=== PATIENT | male | born 1995 | race Caucasian/White ===

== ENCOUNTER → 2017-12-27 | Outpatient (REF) | payer OTHER ==
[2017-12-27 16:47] LABS: PLATELET COUNT, AUTOMATED 233 K/uL (150-450)
== END ==
PROVIDERS: ATTEND Physician Assistant Medical
DX: R07.9 Chest pain, unspecified (principal)
CPT/HCPCS: 82040; 82247; 82310; 82374; 82435; 82565; 82947; 84075; 84132; 84155; 84295; 84443; 84450; 84460; 84484; 84520; 85025; 85379

== ENCOUNTER 2018-11-21 23:31 | Emergency (ER) | payer OTHER ==
--- NOTE | 2018-11-21 23:34 | ER Report ---
History and Physical Time Seen By MD: 23:34 HPI/ROS CHIEF COMPLAINT: Chest pain, no palpitations HISTORY OF PRESENT ILLNESS: 23-year-old male presents ambulatory to the ER complaining of severe chest pain radiating to his left arm. Patient admits to smoking cannabis earlier. Patient was diagnosed with influenza. 2 days ago and prescribed Tamiflu and benzoate. Patient was smoking marijuana tonight when he began to feel really bad. He comes in to the emergency room with pain in his left arm and shaking as well as some dizziness. Patient denies cardiac risk factors. REVIEW OF SYSTEMS: Respiratory: No cough, no dyspnea. Cardiovascular: As above Gastrointestinal: No vomiting, no abdominal pain. Musculoskeletal: No back pain. Allergies: Coded Allergies: amoxicillin (Verified Allergy, Intermediate, SWELLING, HIVES, 11/21/18) Penicillins (Verified Allergy, Unknown, 11/21/18) Home Meds Active Scripts Promethazine Hcl (PROMETHAZINE HCL) 25 Mg Tablet, 25 MG PO Q4H PRN for NAUSEA/VOMITING, #10 TAB Prov:ELIZA ANGLIN DO 11/22/18 Hydrocodone Bit/Acetaminophen (HYDROCODON-ACETAMINOPHEN 5-325) 1 Each Tablet, 1 EACH PO Q4-6H PRN for pain or cough suppression, #10 TAKE ONE TABLET BY MOUTH EVERY 4-6 HOURS NEEDED FOR PAIN Prov:ELIZA ANGLIN DO 11/22/18 Past Medical/Surgical History Unremarkable Reviewed Nurses Notes: Yes Old Medical Records Reviewed: Yes Hx Smoking: No Exposure to Second Hand Smoke?: No Hx Substance Use Disorder: No Hx Alcohol Use: No Constitutional Vital Sign - Last 24 Hours 11/21/18 11/21/18 11/22/18 11/22/18 23:36 23:36 00:00 00:01 Temp 99.1 Pulse 106 95 Resp 15 14 B/P (MAP) 173/98 173/98 (123) 136/81 (99) Pulse Ox 95 93 O2 Delivery Room Air 11/22/18 11/22/18 00:10 00:16 Pulse 87 Resp 10 B/P (MAP) 146/92 (110) Pulse Ox 93 Physical Exam General Appearance: The patient is alert, has no immediate need for airway protection and no current signs of toxicity. Vital signs stable, low-grade fever, pulse ox normal HEENT: Pupils equal and round no injection. TMs normal, oropharynx without redness or exudate, mucous. Membranes are moist Respiratory: Chest is non tender, lungs are clear to auscultation. No chest wall tenderness Cardiac: regular rate and rhythm Gastrointestinal: Abdomen is soft and non tender, no masses, bowel sounds normal. Musculoskeletal: Neck: Neck is supple and non tender. No lymphadenopathy, no meningismus Extremities have full range of motion and are non tender. No edema, no calf tenderness Skin: No rashes or lesions. DIFFERENTIAL DIAGNOSIS: After history and physical exam differential diagnosis was considered for chest pain including but not limited to myocardial ischemia, pericarditis pulmonary embolus, chest wall pain, pleural inflammation and pulmonary infectious causes. Adverse substance reaction, palpitations, anxiety anxiety Medical Decision Making EKG/Imaging EKG Interpretation 12 lead EK Rhythm: normal sinus rhythm [place]: normal QRS: normal ST segments: normal, no evidence of ischemia or dysrhythmia Imaging X-ray: Two-view chest x-ray was obtained. I viewed the images myself on the PACS system. My interpretation of the images is: Infiltrate, no effusion, normal mediastinum. The radiologist interpretation had no clinically significant variation from this interpretation. ED Course/Re-evaluation ED Course Patient was admitted to an examination room. H&P was done. The differential diagnoses was considered. On clinical examination. Patient has a benign exam. His EKG is unremarkable for evidence of ischemia or strain. Chest x-ray is unremarkable. Patient's medicated with Phenergan for nausea. Hydrocodone for chest wall pain. And cough suppression. Patient's studies are unremarkable. I reassured the patient did not have a heart attack, which he thought was going on. Patient advised to continue treatment for influenza with ibuprofen. Patient was given a limited prescription of Phenergan and Lortab. He's advised he is advised to increase his fluid intake. Decision to Disposition Date: Nov 22, 2018 Decision to Disposition Time: 00:34 Depart Departure Latest Vital Signs Vital Signs Date Time Temp Pulse Resp B/P (MAP) Pulse Ox O2 Delivery O2 Flow Rate FiO2 11/22/18 00:16 87 10 93 11/22/18 00:10 146/92 (110) 11/21/18 23:36 99.1 Room Air Impression: Primary Impression: Chest pain Additional Impressions: Influenza A Heart palpitations Adverse reaction to cannabis Condition: Improved Disposition: HOME OR SELF-CARE Referrals: YOVANNY NAGEL MD New Scripts Promethazine Hcl (PROMETHAZINE HCL) 25 Mg Tablet 25 MG PO Q4H PRN for NAUSEA/VOMITING, #10 TAB Prov: ELIZA ANGLIN DO 11/22/18 Hydrocodone Bit/Acetaminophen (HYDROCODON-ACETAMINOPHEN 5-325) 1 Each Tablet 1 EACH PO Q4-6H PRN for pain or cough suppression, #10 TAKE ONE TABLET BY MOUTH EVERY 4-6 HOURS NEEDED FOR PAIN Prov: ELIZA ANGLIN DO 11/22/18 Patient Instructions: Chest Pain (ED), Influenza (ED) Additional Instructions: Follow-up with primary care or the doctor listed on your paperwork if unimproved in 3-5 days Problem Qualifiers Primary Impression: Chest pain Chest pain type: unspecified Qualified Codes: R07.9 - Chest pain, unspecified Additional Impressions: Adverse reaction to cannabis Encounter type: initial encounter Qualified Codes: T40.7X5A - Adverse effect of cannabis (derivatives), initial encounter ELIZA ANGLIN DO Nov 21, 2018 23:34
[2018-11-21] MEDS ORDERED: APAP/HYDROCODONE 325/5 TAB PO ONE (23:45)
[2018-11-21] MEDS ORDERED: PROMETHAZINE HCL 25 MG TAB PO ONE (23:45)
[2018-11-22 00:10] VITALS: BP 146/92
--- NOTE | 2018-11-22 00:12 | EKG ---
FACILITY: [facility] - [place] PATIENT NAME: JAREN ATKINSON : [id number] MR: [id number] V: [id number] EXAM DATE: ORDERING PHYSICIAN: ELIZA ANGLIN TECHNOLOGIST: IESHA Guthrie Reason : CP Blood Pressure : / mmHG Vent. Rate : 091 BPM Atrial Rate : 091 BPM P-R Int : 138 ms QRS Dur : 094 ms QT Int : 356 ms P-R-T Axes : 068 091 054 degrees QTc Int : 437 ms Normal sinus rhythm Normal ECG No previous ECGs available Confirmed by OTILIA SILVA ([id number]) on 11/22/2018 6:35:28 AM Referred By: Confirmed By:OTILIA SILVA
--- NOTE | 2018-11-22 00:25 | RADIOLOGY IMAGING REPORT ---
FACILITY: [facility] PATIENT NAME: Seth Jaime : 1995 MR: [id number] V: [id number] EXAM DATE: ORDERING PHYSICIAN: ELIZA ANGLIN TECHNOLOGIST: Location: [facility] [place] Patient: Seth Jaime : 1995 Visit/Account:[id number] Date of Sevice: 11/21/2018 CHEST PA LAT COMPARISONS: None. ADDITIONAL PERTINENT HISTORY: Chest pain with diagnosis of influenza 2 days ago. FINDINGS: Cardiomediastinal silhouette: Negative. Pulmonary vasculature: Negative. Lung [place]: Negative. Pleural spaces: Negative. Osseous structures: Negative. Surrounding soft tissues: Negative. IMPRESSION: No evidence of acute cardiopulmonary disease. Report Dictated By: Juan Stack MD at 11/22/2018 12:21 AM Report E-Signed By: Juan Stack MD at 11/22/2018 12:22 AM WSN:[id number]
[2018-11-22] MEDS ORDERED: PROM-110 PO (00:37)
[2018-11-22] MEDS ORDERED: LOR5/325 PO (00:37)
== END 2018-11-22 00:47 | disposition home or self-care (01) ==
LOC: ER 23:42
DX: J09.X2 Influenza due to identified novel influenza A virus with other respiratory manifestations (principal); R07.9 Chest pain, unspecified; R00.2 Palpitations; T40.7X5A Adverse effect of cannabis (derivatives), initial encounter
CPT/HCPCS: 71046; 93005; 99284; Q0169